=== PATIENT | female | born 1935 | race Caucasian/White ===

== ENCOUNTER 2016-06-14 18:51 | Inpatient (IN) | payer MEDICARE, OTHER ==
--- NOTE | ~2016-06-14 | HP ---
History And Physical [id number] [place]. [address] NAME: GERMÁN LOPEZ : 37 STATUS : ADM IN [facility]#: [id number] AGE: 80 ADM/REG DATE : 06/14/16 MR#: [id number] REPORT SERV DATE: 06/14/16 DICTATED BY: DATE: REPORT STATUS : Draft TRANSCRIBED BY: MODL DATE: 06/14/16 DATE OF ADMISSION: 06/14/2016 CHIEF COMPLAINT/REASON FOR ADMISSION: Complete heart block. HISTORY OF PRESENT ILLNESS: The history is taken from the daughters at the bedside. The patient was given Versed and Ativan and sedated and not able to give any history. The patient told her daughter on Tuesday night, in the middle of the night that she ached all over, and she thought she may have had a heart attack, but she actually refused to go to the emergency department and then she began feeling dizzy and having symptoms of vertigo. Earlier today when she decided that she wanted to go to the emergency department to seek care, she collapsed in the bed. Her daughter stated that she was weak. She did not pass out. She told her daughter that she felt like something was not right with her heart. She was given Versed and Ativan by EMS and emergency department respectively. The patient was given atropine 0.5 mg x1 with little heart response and in the emergency department, she came and with complete heart block with a heart rate of 28 beats per minute. She has been started on an isoproterenol drip with a good recovery of her heart rate, now ranging between 50 and 60 beats per minute. PAST MEDICAL HISTORY: 1. Coronary artery disease, status post coronary bypass [place] [address] Saunders with a SONI to the LAD and a saphenous vein graft to the OM and redo heart surgery on 01/19/2000 with probable valve replacement. Surgical report is not available. 2. Hypertension. 3. Hyperlipidemia. 4. Chronic left bundle-branch block. 5. Mitral valve regurgitation. 6. Diabetes mellitus. 7. Polymyalgia rheumatica. 8. Bursitis. SOCIAL HISTORY: The patient lives with her daughter. She does not smoke, drink, or use extracurricular drugs. ALLERGIES: NO KNOWN DRUG ALLERGIES. OUTPATIENT MEDICATIONS: Included: 1. Aspirin. 2. Vitamin D. 3. Co Q10, unknown doses by the family, but the patient was also on metformin. 4. Coreg, at unknown. 5. Isoproterenol at 15. PHYSICAL EXAMINATION: CURRENT VITAL SIGNS: Pulse is 50, low pressure is 137/35, oxygen saturations 100% on nasal History And Physical [address] [address] NAME: GERMÁN LOPEZ : 37 STATUS : ADM IN [facility]#: [id number] AGE: 80 ADM/REG DATE : 06/14/16 MR#: [id number] REPORT SERV DATE: 06/14/16 DICTATED BY: DATE: REPORT STATUS : Draft TRANSCRIBED BY: MODL DATE: 06/14/16 cannula. When the patient presented to the emergency department, her blood pressure was 78/24, temperature 97.4, pulse 26, respirations 13, oxygen saturations 98%. GENERAL: Mrs. Lopez is stuporous and unable to answer any questions. NECK: I could not appreciate jugular venous distention. HEART: Bradycardic. Soft S1, S2. There is a 3/6 systolic murmur that is appreciated over the precordium. It is best at the apex. LUNGS: Clear to auscultation. ABDOMEN: Mildly tender to palpation. EXTREMITIES: There is no evidence of lower extremity edema. Complete neurologic status could not be obtained due to the patient's sedation. MUSCULOSKELETAL: No clubbing or cyanosis of the digits. DATA: Laboratory results in the emergency department noted a hemoglobin of 11.4, hematocrit of 33.1, a platelet count of 161, INR 1. Sodium 142, potassium 4.7, BUN 42, creatinine 1.47, calcium 8.9, albumin 3.2. BNP is 704. Troponin is 0.03. TSH is 1.6. AST 31, ALT 34, alkaline phosphatase 90. A chest x-ray performed in the emergency department demonstrated cardiomegaly and mild pulmonary edema bilaterally. Evidence of prior coronary artery bypass grafting is noted. An EKG performed in the emergency department demonstrated sinus bradycardia at approximately 60 beats per minute with a ventricular escape at 28 beats per minute. Right bundle-branch morphology noted. Laboratory results noted a hemoglobin of 11.4, hematocrit of 33.1, white blood cell count 7.4, platelet count 161, INR is 1. Sodium 142, potassium 4.7, BUN 42, creatinine 1.47, glucose is 300. BNP is 702. Troponin 0.03. TSH is 1.6. IMPRESSION/REPORT/PLAN: 1. Complete heart block. 2. History of coronary artery disease, status post coronary bypass grafting. 3. Hypertension. 4. Hyperlipidemia. 5. Diabetes mellitus, uncontrolled. 6. Mild renal insufficiency. 7. Likely acute heart failure secondary to complete heart block as above. RECOMMENDATIONS: 1. I have recommended previously to the emergency department to start isoproterenol drip and one titrated up to keep the patient's heart rate greater than 60 beats per minute. 2. Would rule out acute myocardial infarction. 3. Check free T4, magnesium, lipid panel, hemoglobin A1c, and lactate level. 4. Would recommend echocardiogram to evaluate her left ventricular systolic function. 5. I have recommended to the family that we strongly consider pacemaker placement in the morning. We will arrange for pre-pacemaker orders to the chart consent for pacemaker placement. 6. I have briefly discussed this with Interventional Cardiology in case the patient needs a temporary wire overnight. 7. Additional recommendations pending clinical course. History And Physical [address] [address] NAME: GERMÁN LOPEZ : 37 STATUS : ADM IN [facility]#: [id number] AGE: 80 ADM/REG DATE : 06/14/16 MR#: [id number] REPORT SERV DATE: 06/14/16 DICTATED BY: DATE: REPORT STATUS : Draft TRANSCRIBED BY: ELO DATE: 06/14/16 Massiel/ELO Shy Carrasco M.D. / [id number] CC: Bentley Guerra M.D.
--- NOTE | ~2016-06-14 | CN ---
Consultation Report [facility] [address] [place]. [address] NAME: GERMÁN LOPEZ : 37 STATUS : ADM IN PAT#: [id number] AGE: 80 ADM/REG DATE : 06/14/16 MR#: [id number] REPORT SERV DATE: 06/15/16 DICTATED BY: SALLY ROGERS DATE: 06/15/16 REPORT STATUS : Draft TRANSCRIBED BY: MODL DATE: 06/15/16 CONSULT DATE OF CONSULTATION: 06/15/2016 INDICATION: Complete heart block, bradycardia, presyncope. HISTORY: The patient is a 80-year-old white female who had been followed by Dr. Carrasco for a number of years but had not maintained followup. She has a history of myocardial infarction on 05/13/1998 with two-vessel coronary bypass grafting on 05/17/[address] Saunders with SONI to LAD and SVG to OM and redo bypass grafting on 01/19/2000. Her EF on 06/13/2014 showed normal LV function. ECG shows chronic left bundle branch block pattern. Limited echo today on pressor shows an EF of 65%. She has mild diastolic dysfunction and mild mitral regurgitation. She has a history of type 2 diabetes mellitus and polymyalgia rheumatica, presents with blood sugars of nearly 800. CURRENT HOME MEDICATIONS: Amlodipine 10 daily, aspirin 81 a day, atorvastatin 40 a day, carvedilol 3.125 b.i.d., vitamin D 400 units per day, Coenzyme Q10 100 per day, ibuprofen p.r.n., insulin aspartate as directed, insulin detemir as directed, lisinopril 20 a day, meclizine 25 q.6, metformin 1000 with breakfast and 500 with supper, multivitamins daily, Tamiflu 75 per day. ALLERGIES OR INTOLERANCES: None known. SOCIAL HISTORY: Her son is a nurse in the critical care unit here, negative for alcohol or tobacco use. FAMILY HISTORY: Unknown at this time. PAST MEDICAL HISTORY: See above. REVIEW OF SYSTEMS: See above. PHYSICAL EXAMINATION: GENERAL: Elderly white female, in moderate distress upon arrival to the ER. VITAL SIGNS: Systolic pressure 70, pulse 30-40. HEENT: She is normocephalic. There is no pallor. Sclerae white. JVD is not elevated. CHEST: No crackles. CARDIAC: There is a 2/6 systolic ejection murmur and 1/6 mitral regurgitation murmur. ABDOMEN: Soft. EXTREMITIES: Without edema. NEUROLOGIC: Not assessable as she has had anxiolytics. Consultation Report [address] [place]. [address] NAME: GERMÁN LOPEZ : 37 STATUS : ADM IN [facility]#: [id number] AGE: 80 ADM/REG DATE : 06/14/16 MR#: [id number] REPORT SERV DATE: 06/15/16 DICTATED BY: SALLY ROGERS DATE: 06/15/16 REPORT STATUS : Draft TRANSCRIBED BY: MODAdan DATE: 06/15/16 LABORATORY DATA: BUN 42, creatinine 1.47. BNP 702. TSH 1.68. White count 7.4, hemoglobin 9.4. Baseline ECG shows left bundle branch block pattern. Initial ECG here shows a right bundle branch block pattern with complete AV block. IMPRESSION: Plan dual chamber pacemaker. Risks and benefits are known to the family and the patient. EDUARDO/ELO Sally Rogers M.D. / [id number] CC: Jorge Mcdonald M.D. [facility]
--- NOTE | ~2016-06-14 | DS ---
Discharge Summary [facility] [address] [place]. [address] NAME: GERMÁN LOPEZ : 37 STATUS : DIS IN PAT#: [id number] AGE: 80 ADM/REG DATE : 06/14/16 MR#: [id number] REPORT SERV DATE: 07/15/16 DICTATED BY: DATE: REPORT STATUS : Draft TRANSCRIBED BY: MODAdan DATE: 07/14/16 Data Collection from hospitalization DISCHARGE DIAGNOSES: 1. Complete heart block, status post pacemaker placement. 2. Acute systolic heart failure. 3. Coronary artery disease, status post coronary artery bypass grafting. 4. Diabetes mellitus. 5. Hypertension. 6. Hyperlipidemia. 7. Polymyalgia rheumatica. 8. Bursitis. CONSULTATIONS: 1. Harshad Rogers M.D. 2. Mic Ferrari M.D. PROCEDURES: Pacemaker implantation, 06/15/2016. DISCHARGE MEDICATIONS: Norvasc 10 mg daily; aspirin 81 mg daily; Lipitor 40 mg at bedtime; Coreg 6.25 mg twice a day; vitamin D 400 units daily; CoQ10 100 mg daily; Advil PM one capsule at bedtime as needed; NovoLog FlexPen 5-10 units subcutaneously before meals; Levemir FlexPen 20 units subcutaneously at bedtime; Prinivil 20 mg daily; Antivert 25 mg every six hours as needed; Glucophage 1000 mg with breakfast and 500 mg with supper; Centrum tablets one tablet daily; Aldactazide 25 mg daily; Ultram 50-100 mg every four hours as needed. CONDITION ON DISCHARGE: Stable. DISPOSITION: The patient was discharged home on a low-cholesterol, low-sodium, 1800-calorie cardiac/diabetic diet with activities as instructed. She would follow up with Dr. Shy Carrasco on 07/12/2016 and 07/19/2016. She will follow up with Dr. Bentley Guerra 1 week following discharge. HOSPITAL COURSE: This is a 80-year-old female who presented with a chief complaint of complete heart block. The patient told her daughter on Tuesday night prior to admission in the middle of the night that she ached all over and she thought she may have had a heart attack. She actually refused to come to the emergency room. She began to feel dizzy and had symptoms of vertigo, earlier on the day of this admission, when she decided that she wanted to go to the emergency department to seek care. She collapsed in the bed. Her daughter said that she was weak. She did not pass out. She told her daughter that she felt like something was not right with her heart. She was given Versed and Ativan by EMS and emergency department respectively. She was given a dose of atropine with little heart response and in the emergency department she came and was found to have a complete heart block with heart rate of 28 beats per minute. She was started on isoproterenol drip with good recovery of her heart rate which now ranged between 50 and 60 beats per minute. She was admitted to the hospital at this time for further evaluation and treatment. Discharge Summary [facility] [address] [place]. [address] NAME: GERMÁN LOPEZ : 37 STATUS : DIS IN PAT#: [id number] AGE: 80 ADM/REG DATE : 06/14/16 MR#: [id number] REPORT SERV DATE: 07/15/16 DICTATED BY: DATE: REPORT STATUS : Draft TRANSCRIBED BY: MODL DATE: 07/14/16 Upon admission, isoproterenol drip was started and would be titrated to keep the patient's heart rate greater than 60 beats per minute. We were going to rule out acute myocardial infarction. We would check free T4, magnesium, lipid panel, hemoglobin A1c, and lactate level. Echocardiogram was going to be performed to evaluate left ventricular systolic function. It was recommended to the patient's family that we would strongly consider pacemaker placement. The following day, limited echocardiogram showed ejection fraction of 65%. She was on pressor. She had mild diastolic dysfunction and mild mitral regurgitation. She does have a history of type 2 diabetes mellitus and polymyalgia rheumatica. Her blood sugar was nearly 800. Creatinine level was 1.47. It was felt that the patient would need to undergo dual-chamber pacemaker placement. She agreed to proceed. She was taken to the electrophysiology laboratory where she underwent the above-mentioned procedure by Dr. Harshad Rogers. She tolerated this well. There were no complications. Following this, she was seen by Dr. Mic Ferrari regarding respiratory failure, on mechanical ventilator. The patient has no history of underlying intrinsic lung disease. We would continue ventilatory support though change to CMV with tidal volume only at 500 mL. Blood gas was adequate. We would attempt to wean. The following day, she was clinically stable. The patient has symptoms of obstructive sleep apnea and warrants an outpatient sleep evaluation for cardiac disease. Influenza screen was ordered. She will be treated with Tamiflu regardless with her known exposure. Blood cultures would be obtained as well as tracheal aspirate and Gram stain and culture as well as urine and urine culture, if indicated. We would not provide empiric antibiotics at this time. Prevnar 13 would be given at the time of discharge. IV insulin was going to be continued. Levemir was continued. We were going to check a cortisol level. Additional IV magnesium would be provided. The patient was felt to have acute kidney injury likely secondary to under perfusion which was also the cause of the elevated lactate. Ionized calcium was going to be obtained. IV fluids were continued. Echocardiogram would be obtained the following day. IV Cody-Synephrine would be provided to maintain mean arterial pressure greater than or equal to 70. Norvasc was going to be held. Pneumatic compression stockings were going to be placed. Protonix would be given for GI prophylaxis. Glucerna was going to be provided as well. Precedex would be given for sedation, and a multivitamin would be given daily. A PICC line was inserted. The next day, low-dose Coreg and lisinopril were given. Spironolactone was going to be added as well. Creatinine level had decreased. Over the next couple of days, she remained stable. She did complain of pain in the left shoulder. She had no chest pain or shortness of breath. Low-dose CARIE inhibitor was added. She was going to be transferred to telemetry. Aspirin, atorvastatin, spironolactone, and Coreg were continued. On 06/18/2016, she had no issues during the night. Creatinine level continued to decrease and was now 0.94. She still complained of intermittent bilateral shoulder and back pain. It was not worse when she got up to sit in a chair. Stool was going to be checked for blood. Roberts catheter was going to be removed. We encouraged her to ambulate. Aldactone was added. The next day, discharge planning was performed. She had some soreness at the pacemaker site. Norvasc was continued. Coreg was increased. Lisinopril was continued. She was evaluated by Physical Therapy. Discharge planning was performed. On 06/20/2016, she had no chest pain. She still has soreness at the pacer site. Discharge instructions were given. Due to her improved and stable condition, she was discharged home with the above-stated instructions. Discharge Summary [id number] [place]. [address] NAME: GERMÁN LOPEZ : 37 STATUS : DIS IN PAT#: [id number] AGE: 80 ADM/REG DATE : 06/14/16 MR#: [id number] REPORT SERV DATE: 07/15/16 DICTATED BY: DATE: REPORT STATUS : Draft TRANSCRIBED BY: ELO DATE: 07/14/16 Information collected by: Carmella Moore I submit the above information as my discharge summary. BASHIR/ELO Shy Carrasco M.D. / [id number] CC: Jorge Mcdonald M.D. David Wendt, M.D.
--- NOTE | ~2016-06-14 | CN ---
Consultation Report [facility] [address] [place]. [address] NAME: GERMÁN LOPEZ : 37 STATUS : ADM IN [facility]#: [id number] AGE: 80 ADM/REG DATE : 06/14/16 MR#: [id number] REPORT SERV DATE: 06/15/16 DICTATED BY: MIGUEL FERRARI IV DATE: 06/15/16 REPORT STATUS : Draft TRANSCRIBED BY: MODL DATE: 06/15/16 CRITICAL CARE CONSULTATION DATE OF CONSULTATION: 06/15/2016 REASON FOR REQUEST: Respiratory failure on mechanical ventilator. CRITICAL CARE TIME SEEN: 12:35 to 13:30 for 55 minutes of critical care time. REASON FOR ADMISSION: Postprocedure respiratory failure on mechanical ventilator with hypotension requiring vasopressor agents. HISTORY OF PRESENT ILLNESS: History is obtained from the family and records. Ms. Lopez is a 80-year-old female with a history of hypertension; elevated cholesterol; coronary artery disease; mitral valvular disease, status post either repair or replacement; polymyalgia rheumatica; chronic left bundle-branch block, who was admitted with complete heart block, now with a pacemaker on the ventilator postprocedure. The patient became ill on Tuesday. They had several family members with symptoms consistent with influenza with a step-granddaughter with reported screen positive influenza B. She had diffuse body aches, chills, and weakness. That afternoon, she developed some back pain, which she related to her heart and then weakness and malaise. The symptoms seemed to improve in the afternoon on Tuesday, though worsening again on Tuesday. Today, she took two of the family members Tamiflu. The family checked her pulse on Tuesday and found it to be in the 20s for which she was brought to the emergency room. She was found to be in third-degree heart block and underwent pacemaker placement today. She had required Isuprel to maintain an adequate pulse at relatively high doses. Postprocedure, she was intubated for airway protection during the procedure, and postprocedure, it was felt that she was too unstable for attempts at extubation for which she is moved to the ICU. There is no history of intrinsic lung disease. She has an intermittent dry cough that is no different than its baseline. There was no hemoptysis. She is not on bronchodilator medication nor is she on supplemental oxygen at home. The patient reportedly snores. The patient is unaware of apneic episodes. She allows herself seven to eight hours of sleep most evenings. They are unsure about the quality of sleep, however, she is sluggish and has sedentary hypersomnolence. PULMONARY HISTORY: Remarkable for no history of childhood asthma or known adult obstructive lung disease. She did have pneumonia in past. She is a lifelong nonsmoker with no significant secondary smoke exposure. She has not been receiving the seasonal influenza or a vaccinations or the pneumococcal vaccinations. PAST MEDICAL HISTORY: 1. Hypertension. 2. Elevated cholesterol. Consultation Report [place] [id number] [facility] [place]. [address] NAME: GERMÁN LOPEZ : 37 STATUS : ADM IN [facility]#: [id number] AGE: 80 ADM/REG DATE : 06/14/16 MR#: [id number] REPORT SERV DATE: 06/15/16 DICTATED BY: MIGUEL FERRRAI IV DATE: 06/15/16 REPORT STATUS : Draft TRANSCRIBED BY: ELO DATE: 06/15/16 3. Coronary artery disease. 4. Mitral valve disease. 5. Polymyalgia rheumatica. 6. Left bundle-branch block. 7. Complete heart block. 8. Borderline chronic kidney disease. SURGERIES: The patient had, 1. Coronary artery bypass grafting. 2. Mitral valvular repair or replacement. 3. Tonsillectomy and adenoidectomy. 4. Cholecystectomy. ALLERGIES: NO KNOWN DRUG ALLERGIES. CURRENT MEDICATIONS: The patient is on aspirin 81 mg daily, Bactroban each nostril, CoQ10 100 mg daily, Levemir 20 units daily, Lipitor 40 mg at bedtime, Norvasc 5 mg daily. She is on Cody-Synephrine currently at 20 mcg per minute, and insulin drip at 3 units/hour. SOCIAL HISTORY: Remarkable for no tobacco, alcohol, or illicit drug use. She is , has five children. FAMILY HISTORY: Remarkable for sister with diabetes and coronary artery disease. Mother with diabetes mellitus. Father and brother with coronary artery disease. REVIEW OF SYSTEMS: 14 systems reviewed. Pertinent positives as noted above. PHYSICAL EXAMINATION: GENERAL: This is an obese, elderly female, sedated, though able to open her eyes and nod to questions. VITAL SIGNS: Temperature is 98.2, pulse is 70, respiratory rate is 20, saturations are 98% on 50% FiO2, blood pressure is 118/52. HEENT: Patient is normocephalic, atraumatic. Extraocular movements are intact. Pupils react to light. Sclerae and conjunctivae normal. She has no drainage from either nasal passage. She has a Mallampati IV airway with relatively good dentition. She has an orogastric and orotracheal tube in position. NECK: Without any palpable lymphadenopathy or thyromegaly. CHEST: The patient has some minimal bibasilar crackles. No wheezes or rhonchi are noted. She has a sternotomy scar. She has a pacemaker in her left anterior chest with dressings. CARDIOVASCULAR: Jugular venous pulsations are difficult to elicit. She has 1+ carotid upstrokes. No obvious bruit. She has a distant regular S1, S2 with no clear murmur or S3. Peripheral pulses are diminished. ABDOMEN: Obese, soft. There are hypoactive bowel sounds. There is no palpable hepatosplenomegaly or mass. Surgical scars are noted. Consultation Report [address] [place]. [address] NAME: GERMÁN LOPEZ : 37 STATUS : ADM IN [facility]#: [id number] AGE: 80 ADM/REG DATE : 06/14/16 MR#: [id number] REPORT SERV DATE: 06/15/16 DICTATED BY: MIGUEL FERRARI IV DATE: 06/15/16 REPORT STATUS : Draft TRANSCRIBED BY: ELO DATE: 06/15/16 EXTREMITIES: Demonstrate no cyanosis, clubbing, edema, or palpable cords. NEUROLOGIC: The patient is sedated though does follow some simple commands, does seem to move all extremities. LABORATORY DATA: Chest x-ray is very rotated film. Tubes and lines are in good position. There is no pneumothorax. There are some pulmonary vascular congestive changes, though not severe. No effusions are noted. A KUB demonstrates the OG to be in good position. CBC: Hemoglobin 11, hematocrit 31.5, platelet count was a 174,000, and white blood cell count 13,000. Chemistry: Sodium 134, potassium 3.8, chloride 102, bicarbonate 17, BUN 43, creatinine is 2.19, glucose is 612, magnesium is 1.4. Troponin is 0.67. BNP is 770. Blood gas; pH 7.36, pCO2 30, PO2 of 314. ASSESSMENT AND PLAN: 1. Respiratory. The patient has no history of underlying intrinsic lung disease. We will continue ventilatory support, though change to CMV with tidal volume only at 500 mL. Blood gas is adequate. We will attempt to wean tomorrow if she is clinically stable. The patient has symptoms of obstructive sleep apnea and warrants an outpatient sleep evaluation for cardiac disease. 2. Infectious Disease. The influenza screen has been ordered. We will treat with Tamiflu regardless with unknown exposure. We will check blood cultures, tracheal aspirate, Gram stain and culture, as well as urine and urine culture if indicated. I would not provide empiric antibiotics at this time. Prevnar-13 at the time of discharge. 3. Endocrinologic. IV insulin will be continued with the level changed to maintain blood sugars less than 160. Levemir will be given 14 units b.i.d. Cortisol level will be obtained. 4. Renal. We will give additional magnesium 3 g. Check tomorrow with the patient who has acute kidney injury likely secondary to under perfusion, which is also the cause for the elevated lactate. This will be repeated tomorrow. Ionized calcium will be obtained. 5. Cardiovascular. Total IV fluids at 50 mL an hour with drips. Echocardiogram will be obtained tomorrow. Pacemaker has been placed. IV Cody-Synephrine to maintain mean arterial pressure greater than or equal to 70. Would hold all Norvasc. 6. Hematologic. Pneumatic compression stockings serially. 7. Gastrointestinal. Protonix will be given for gastrointestinal prophylaxis 40 mg daily, Glucerna 1.2 at 20 mL an hour without escalation. 8. Neurologic. Precedex for sedation. Multivitamin will be given daily. Thank you for consulting us. We will follow the patient with you. NM/MODL Miguel Ferrari IV, M.D. Consultation Report [facility] [address] [place] [address] [place]. [address] NAME: GERMÁN LOPEZ : 37 STATUS : ADM IN [facility]#: [id number] AGE: 80 ADM/REG DATE : 06/14/16 MR#: [id number] REPORT SERV DATE: 06/15/16 DICTATED BY: MIGUEL FERRARI IV DATE: 06/15/16 REPORT STATUS : Draft TRANSCRIBED BY: ELO DATE: 06/15/16 / [id number] CC: Jorge Mcdonald M.D.
[2016-06-14 17:57] LABS: BASOPHILS 0.1 %; BASOPHILS ABSOLUTE 0.01 10/3/uL (0.0-0.16); EOSINOPHILS 1.8 %; EOSINOPHILS ABSOLUTE 0.13 10/3/uL (0.0-0.53); ER CBC TAT 0 Hrs 13 Mins; HEMATOCRIT 33.1 % (36.0-48.0); HEMOGLOBIN 11.4 g/dL (12.0-16.0); IMMATURE GRANULOCYTES 0.1 %; MEAN CORPUS HGB CONC 34.4 g/dL (32.0-36.0); MEAN CORPUSCULAR HEMOGLOB 32.3 pg (26.0-34.0); MEAN PLATELET VOLUME 10.7 fL (9.2-13.0); MONOCYTES 5.7 %; MONOCYTES ABSOLUTE 0.42 10/3/uL (0.21-1.20); NEUTROPHILS 69.3 %; NEUTROPHILS ABSOLUTE 5.12 10/3/uL (2.02-8.40); PLATELET COUNT 161 10/3/uL (150-400); RBC DISTRIBUTION WIDTH 13.2 % (12.0-16.0); RED CELL COUNT 3.53 10/6/uL (4.0-5.6); WHITE BLOOD CELLS 7.4 10/3/uL (4.5-10.5)
[2016-06-14 18:02] LABS: IMMATURE GRANULOCYTES ABSOLUTE 0.01 10/3/uL (0.0-0.11); MANUAL DIFF NO %; MEAN CORPUSCULAR VOLUME 93.8 fL (80-100)
[2016-06-14 18:06] LABS: PROTIME (NOT ORD) 13.4 SEC (12.0-14.5)
[2016-06-14 18:20] LABS: ALBUMIN 3.2 G/DL (3.5-5.0); ALKALINE PHOSPHATASE 90 U/L (45-117); CALCIUM, SERUM 8.9 MG/DL (8.5-10.4); CHLORIDE, SERUM 109 MMOL/L (96-112); GLOBULIN 3.3 G/DL (2.5-4.1); POTASSIUM, SERUM 4.7 MMOL/L (3.5-5.3); SGOT(AST) 31 U/L (5-40); SGPT(ALT) 34 U/L (5-65); SODIUM, SERUM 142 MMOL/L (135-148); TOTAL BILIRUBIN 0.3 MG/DL (0-1.2); TOTAL PROTEIN 6.5 G/DL (6.0-8.5); TROPONIN I 0.03 NG/ML (<0.05)
[2016-06-14 18:21] LABS: BUN (BLOOD UREA NITROGEN) 42 MG/DL (6-23); CO2 (CARBON DIOXIDE) 21 MMOL/L (24-34); CREATININE 1.47 MG/DL (0.55-1.02); GFR AFRICAN AMERICAN 39 ML/MIN (>=60); GFR NON AFRICAN AMERICAN 34 ML/MIN (>=60); GLUCOSE, SERUM 300 MG/DL (60-99)
[2016-06-14 18:33] LABS: BAND NEUTROPHILS 2 %; EOSINOPHILS 2 %; EOSINOPHILS ABSOLUTE (CALC) 0.15 10/3/uL (0.0-0.53); ER DIFF TAT 0 Hrs 49 Mins; LYMPHOCYTES 18 %; LYMPHOCYTES ABSOLUTE (CALC) 1.33 10/3/uL (0.67-4.30); MONOCYTES 5 %; MONOCYTES ABSOLUTE (CALC) 0.37 10/3/uL (0.21-1.20); NEUTROPHILS ABSOLUTE (CALC) 5.55 10/3/uL (2.02-8.40); PLATELET ESTIMATE ADQ (ADEQUATE); SEGMENTED NEUTROPHIL (0) 73 %; TEARDROP SHAPED RBCS OCC (0-2/OIF); TOTAL NUCLEATED CELLS 100
[~2016-06-14 18:51] MED LIST: *UNABLE3; AMARYL4 PO; ASAB PO; ATEN25 PO; CENTRUM PO; CO Q-10100 MG PO; COREG6 PO; CYANO1000T PO; CYMBALTA30 PO; DSS PO; FLEX PO; GLUCPH PO; JANUMET1 TAB PO; LANTUSCART SC; LIPITOR40 PO; LORT7 PO; NORV10 PO; NOVOPEN SQ; PRIN20 PO; PROTONIX PO; PROVHFA INH; VITAMIN D400 UNI1 PO; ZOFRAN ODT4 MG PO
[2016-06-14] MEDS ORDERED: LEVEMFLXPN SQ (18:52)
[2016-06-14] MEDS ORDERED: ADVIL PM1 CAP PO (18:52)
[2016-06-14] MEDS ORDERED: MCZ25 PO (18:53)
[2016-06-14] MEDS ORDERED: TAMIFLU PO (18:54)
[2016-06-14] MEDS ORDERED: AMOX250 PO (18:55)
[2016-06-14 21:07] LABS: CHOL/HDL RATIO(NOT ORDER) 3.4 (0-5); CHOLESTEROL 140 MG/DL (< 200); CPK 34 U/L (0-200); FREE T4 1.33 NG/DL (0.76-1.46); HDL CHOLESTEROL 41 MG/DL (> 49); NON-HDL CHOLESTEROL 99 MG/DL (< 160)
[2016-06-14 21:08] LABS: CK-MB < 0.5 NG/ML; LDL CHOLESTEROL 66 MG/DL (< 130); TRIGLYCERIDE 168 MG/DL (< 150)
[2016-06-14 23:21] LABS: CPK 31 U/L (0-200)
[2016-06-14 23:24] LABS: CK-MB 1.6 NG/ML
[2016-06-14 23:25] LABS: TROPONIN I 0.43 NG/ML (<0.05)
[2016-06-15 04:18] LABS: GLUCOSE, SERUM 612 MG/DL (60-99)
[2016-06-15 04:20] LABS: HEMATOCRIT 31.5 % (36.0-48.0); MEAN CORPUS HGB CONC 34.9 g/dL (32.0-36.0); MEAN CORPUSCULAR HEMOGLOB 32.4 pg (26.0-34.0); MEAN CORPUSCULAR VOLUME 92.6 fL (80-100); MEAN PLATELET VOLUME 10.7 fL (9.2-13.0); PLATELET COUNT 174 10/3/uL (150-400); RBC DISTRIBUTION WIDTH 12.5 % (12.0-16.0)
[2016-06-15 04:21] LABS: BUN (BLOOD UREA NITROGEN) 43 MG/DL (6-23); CHLORIDE, SERUM 102 MMOL/L (96-112); CO2 (CARBON DIOXIDE) 17 MMOL/L (24-34); CPK 45 U/L (0-200); MANUAL DIFF YES %; POTASSIUM, SERUM 3.8 MMOL/L (3.5-5.3)
[2016-06-15 04:26] LABS: CALCIUM, SERUM 7.9 MG/DL (8.5-10.4); CREATININE 2.19 MG/DL (0.55-1.02); GFR AFRICAN AMERICAN 24 ML/MIN (>=60); GFR NON AFRICAN AMERICAN 21 ML/MIN (>=60); SODIUM, SERUM 134 MMOL/L (135-148); TROPONIN I 0.67 NG/ML (<0.05)
[2016-06-15 05:18] LABS: BAND NEUTROPHILS 4 %; LYMPHOCYTES 9 %; LYMPHOCYTES ABSOLUTE (CALC) 1.17 10/3/uL (0.67-4.30); MONOCYTES 2 %; MONOCYTES ABSOLUTE (CALC) 0.26 10/3/uL (0.21-1.20); NEUTROPHILS ABSOLUTE (CALC) 11.57 10/3/uL (2.02-8.40); PLATELET ESTIMATE ADQ (ADEQUATE); RBC MORPHOLOGY NORM (NORMAL); SEGMENTED NEUTROPHIL (0) 85 %; TOTAL NUCLEATED CELLS 100
[2016-06-15 11:14] LABS: CREATININE 1.4 MG/DL (0.55-1.02)
[2016-06-15 12:43] LABS: BE (BASE EXCESS) -7.7 MEQ/L (0 +/- 2.5); CARBOXYHEMOGLOBIN 0.2 % (0-3); HCO3 (ACTUAL BICARBONATE) 16.6 MEQ/L (23-27); HEMOBLOGIN CONTENT 11.8 G/DL (12-16); INSTRUMENT SERIAL # 35151; METHEMOGLOBIN 0.7 % (0-3); MODE SIMV; O2 CONTENT 17.1 VOL% (18-24); PCO2 (CO2 TENSION) 30 MMHG (35-45); PO2 (O2 TENSION) 314 MMHG (79-93); SAMPLE Arterial; TIDAL VOLUME 500 ML; pH 7.36 (7.37-7.43)
[2016-06-15 13:38] LABS: A/G RATIO 0.9 (0.7-1.9); ALBUMIN 2.8 G/DL (3.5-5.0); ALKALINE PHOSPHATASE 82 U/L (45-117); BUN (BLOOD UREA NITROGEN) 34 MG/DL (6-23); CALCIUM, SERUM 7.6 MG/DL (8.5-10.4); CHLORIDE, SERUM 108 MMOL/L (96-112); CO2 (CARBON DIOXIDE) 19 MMOL/L (24-34); CREATININE 1.49 MG/DL (0.55-1.02); GFR AFRICAN AMERICAN 38 ML/MIN (>=60); GFR NON AFRICAN AMERICAN 33 ML/MIN (>=60); GLOBULIN 3.1 G/DL (2.5-4.1); GLUCOSE, SERUM 126 MG/DL (60-99); POTASSIUM, SERUM 4.3 MMOL/L (3.5-5.3); SGOT(AST) 68 U/L (5-40); SGPT(ALT) 54 U/L (5-65); SODIUM, SERUM 138 MMOL/L (135-148); TOTAL BILIRUBIN 0.6 MG/DL (0-1.2); TOTAL PROTEIN 5.9 G/DL (6.0-8.5)
[2016-06-15 14:51] LABS: ASCORBIC ACID (UR NOT ORDER) NEG (NEG); BILIRUBIN, URINE NEGATIVE (NEG); KETONE, URINE NEGATIVE (NEG); LEUKOCYTE ESTERASE(NOT OR NEG (NEG); WBC (NOT ORDERED) (RFLEX) 2 (0-5)
[2016-06-15 14:51] LABS: PHOSPHORUS, SERUM 2.1 MG/DL (2.5-4.5)
[2016-06-15 16:49] LABS: INFLUENZA A SCREEN NEGATIVE (NEGATIVE); INFLUENZA B SCREEN NEGATIVE (NEGATIVE)
[2016-06-16 04:16] LABS: BASOPHILS 0.1 %; BASOPHILS ABSOLUTE 0.01 10/3/uL (0.0-0.16); EOSINOPHILS 0.1 %; EOSINOPHILS ABSOLUTE 0.01 10/3/uL (0.0-0.53); HEMATOCRIT 29.7 % (36.0-48.0); HEMOGLOBIN 10.6 g/dL (12.0-16.0); IMMATURE GRANULOCYTES 0.3 %; IMMATURE GRANULOCYTES ABSOLUTE 0.03 10/3/uL (0.0-0.11); LYMPHOCYTES ABSOLUTE 0.91 10/3/uL (0.67-4.30); MANUAL DIFF NO %; MEAN CORPUS HGB CONC 35.7 g/dL (32.0-36.0); MEAN CORPUSCULAR HEMOGLOB 32.8 pg (26.0-34.0); MEAN PLATELET VOLUME 10.4 fL (9.2-13.0); MONOCYTES 8.1 %; MONOCYTES ABSOLUTE 0.74 10/3/uL (0.21-1.20); NEUTROPHILS 81.4 %; PLATELET COUNT 126 10/3/uL (150-400); RBC DISTRIBUTION WIDTH 12.9 % (12.0-16.0); RED CELL COUNT 3.23 10/6/uL (4.0-5.6); WHITE BLOOD CELLS 9.1 10/3/uL (4.5-10.5)
[2016-06-16 04:39] LABS: BUN (BLOOD UREA NITROGEN) 33 MG/DL (6-23); CALCIUM, SERUM 7.4 MG/DL (8.5-10.4); CHLORIDE, SERUM 111 MMOL/L (96-112); CO2 (CARBON DIOXIDE) 20 MMOL/L (24-34); CREATININE 1.32 MG/DL (0.55-1.02); GFR AFRICAN AMERICAN 44 ML/MIN (>=60); GFR NON AFRICAN AMERICAN 38 ML/MIN (>=60); POTASSIUM, SERUM 4.3 MMOL/L (3.5-5.3); SODIUM, SERUM 140 MMOL/L (135-148)
[2016-06-16 04:49] LABS: GLUCOSE, SERUM 99 MG/DL (60-99); PHOSPHORUS, SERUM 3.3 MG/DL (2.5-4.5); TROPONIN I 1.06 NG/ML (<0.05)
[2016-06-17 04:10] LABS: BASOPHILS 0.2 %; BASOPHILS ABSOLUTE 0.02 10/3/uL (0.0-0.16); EOSINOPHILS ABSOLUTE 0.11 10/3/uL (0.0-0.53); HEMATOCRIT 28.7 % (36.0-48.0); HEMOGLOBIN 9.8 g/dL (12.0-16.0); IMMATURE GRANULOCYTES 0.4 %; IMMATURE GRANULOCYTES ABSOLUTE 0.04 10/3/uL (0.0-0.11); LYMPHOCYTES 10.4 %; LYMPHOCYTES ABSOLUTE 1.11 10/3/uL (0.67-4.30); MEAN CORPUS HGB CONC 34.1 g/dL (32.0-36.0); MEAN CORPUSCULAR HEMOGLOB 32.2 pg (26.0-34.0); MEAN CORPUSCULAR VOLUME 94.4 fL (80-100); MONOCYTES 7.5 %; NEUTROPHILS 80.5 %; NEUTROPHILS ABSOLUTE 8.55 10/3/uL (2.02-8.40); PLATELET COUNT 161 10/3/uL (150-400); RBC DISTRIBUTION WIDTH 13.2 % (12.0-16.0); RED CELL COUNT 3.04 10/6/uL (4.0-5.6); WHITE BLOOD CELLS 10.6 10/3/uL (4.5-10.5)
[2016-06-17 04:14] LABS: MANUAL DIFF NO %
[2016-06-17 04:22] LABS: ALBUMIN 2.5 G/DL (3.5-5.0); CALCIUM, SERUM 7.8 MG/DL (8.5-10.4); CHLORIDE, SERUM 117 MMOL/L (96-112); CO2 (CARBON DIOXIDE) 22 MMOL/L (24-34); CREATININE 1.13 MG/DL (0.55-1.02); GFR AFRICAN AMERICAN 54 ML/MIN (>=60); GFR NON AFRICAN AMERICAN 46 ML/MIN (>=60); PHOSPHORUS, SERUM 3.3 MG/DL (2.5-4.5); POTASSIUM, SERUM 3.9 MMOL/L (3.5-5.3)
[2016-06-17 04:25] LABS: BUN (BLOOD UREA NITROGEN) 25 MG/DL (6-23); GLUCOSE, SERUM 54 MG/DL (60-99); SODIUM, SERUM 147 MMOL/L (135-148)
[2016-06-18 04:47] LABS: BASOPHILS 0.2 %; BASOPHILS ABSOLUTE 0.01 10/3/uL (0.0-0.16); EOSINOPHILS 1.8 %; EOSINOPHILS ABSOLUTE 0.12 10/3/uL (0.0-0.53); HEMOGLOBIN 8.7 g/dL (12.0-16.0); IMMATURE GRANULOCYTES 0.2 %; IMMATURE GRANULOCYTES ABSOLUTE 0.01 10/3/uL (0.0-0.11); LYMPHOCYTES 19.6 %; LYMPHOCYTES ABSOLUTE 1.29 10/3/uL (0.67-4.30); MEAN CORPUS HGB CONC 34.1 g/dL (32.0-36.0); MEAN CORPUSCULAR HEMOGLOB 32.6 pg (26.0-34.0); MEAN CORPUSCULAR VOLUME 95.5 fL (80-100); MONOCYTES 8.7 %; MONOCYTES ABSOLUTE 0.57 10/3/uL (0.21-1.20); NEUTROPHILS 69.5 %; NEUTROPHILS ABSOLUTE 4.58 10/3/uL (2.02-8.40); PLATELET COUNT 125 10/3/uL (150-400); RBC DISTRIBUTION WIDTH 13.6 % (12.0-16.0); RED CELL COUNT 2.67 10/6/uL (4.0-5.6); WHITE BLOOD CELLS 6.6 10/3/uL (4.5-10.5)
[2016-06-18 04:53] LABS: HEMATOCRIT 25.5 % (36.0-48.0); MANUAL DIFF NO %
[2016-06-18 05:04] LABS: CALCIUM, SERUM 7.6 MG/DL (8.5-10.4); CHLORIDE, SERUM 115 MMOL/L (96-112); CO2 (CARBON DIOXIDE) 21 MMOL/L (24-34); CREATININE 0.94 MG/DL (0.55-1.02); GFR AFRICAN AMERICAN 67 ML/MIN (>=60); GFR NON AFRICAN AMERICAN 58 ML/MIN (>=60); POTASSIUM, SERUM 4.3 MMOL/L (3.5-5.3); SODIUM, SERUM 145 MMOL/L (135-148)
[2016-06-18 05:11] LABS: BUN (BLOOD UREA NITROGEN) 21 MG/DL (6-23); GLUCOSE, SERUM 101 MG/DL (60-99)
[2016-06-19 05:13] LABS: BASOPHILS 0.1 %; BASOPHILS ABSOLUTE 0.01 10/3/uL (0.0-0.16); EOSINOPHILS 1.5 %; HEMATOCRIT 23.8 % (36.0-48.0); HEMOGLOBIN 8.3 g/dL (12.0-16.0); IMMATURE GRANULOCYTES 0.1 %; IMMATURE GRANULOCYTES ABSOLUTE 0.01 10/3/uL (0.0-0.11); LYMPHOCYTES 14.1 %; LYMPHOCYTES ABSOLUTE 0.97 10/3/uL (0.67-4.30); MEAN CORPUS HGB CONC 34.9 g/dL (32.0-36.0); MEAN CORPUSCULAR HEMOGLOB 32.4 pg (26.0-34.0); MEAN PLATELET VOLUME 9.7 fL (9.2-13.0); MONOCYTES 7.1 %; MONOCYTES ABSOLUTE 0.49 10/3/uL (0.21-1.20); NEUTROPHILS 77.1 %; NEUTROPHILS ABSOLUTE 5.28 10/3/uL (2.02-8.40); PLATELET COUNT 148 10/3/uL (150-400); RBC DISTRIBUTION WIDTH 13.5 % (12.0-16.0); RED CELL COUNT 2.56 10/6/uL (4.0-5.6); WHITE BLOOD CELLS 6.9 10/3/uL (4.5-10.5)
[2016-06-19 05:22] LABS: MANUAL DIFF NO %
[2016-06-19 05:35] LABS: CHLORIDE, SERUM 112 MMOL/L (96-112); CO2 (CARBON DIOXIDE) 21 MMOL/L (24-34); CREATININE 0.97 MG/DL (0.55-1.02); GFR AFRICAN AMERICAN 64 ML/MIN (>=60); GFR NON AFRICAN AMERICAN 56 ML/MIN (>=60); POTASSIUM, SERUM 4.3 MMOL/L (3.5-5.3); SODIUM, SERUM 143 MMOL/L (135-148)
[2016-06-19 05:37] LABS: BUN (BLOOD UREA NITROGEN) 17 MG/DL (6-23); GLUCOSE, SERUM 182 MG/DL (60-99)
[2016-06-20 05:19] LABS: BASOPHILS 0.2 %; BASOPHILS ABSOLUTE 0.01 10/3/uL (0.0-0.16); EOSINOPHILS 3.3 %; EOSINOPHILS ABSOLUTE 0.17 10/3/uL (0.0-0.53); HEMATOCRIT 22.7 % (36.0-48.0); IMMATURE GRANULOCYTES 0.6 %; IMMATURE GRANULOCYTES ABSOLUTE 0.03 10/3/uL (0.0-0.11); LYMPHOCYTES 21.5 %; LYMPHOCYTES ABSOLUTE 1.12 10/3/uL (0.67-4.30); MEAN CORPUS HGB CONC 35.2 g/dL (32.0-36.0); MEAN CORPUSCULAR HEMOGLOB 32.8 pg (26.0-34.0); MEAN PLATELET VOLUME 9.4 fL (9.2-13.0); MONOCYTES 9.6 %; NEUTROPHILS 64.8 %; NEUTROPHILS ABSOLUTE 3.39 10/3/uL (2.02-8.40); PLATELET COUNT 153 10/3/uL (150-400); RBC DISTRIBUTION WIDTH 13.2 % (12.0-16.0); RED CELL COUNT 2.44 10/6/uL (4.0-5.6); WHITE BLOOD CELLS 5.2 10/3/uL (4.5-10.5)
[2016-06-20 05:26] LABS: MANUAL DIFF NO %
[2016-06-20 05:35] LABS: BUN (BLOOD UREA NITROGEN) 12 MG/DL (6-23); CALCIUM, SERUM 8.1 MG/DL (8.5-10.4); CHLORIDE, SERUM 114 MMOL/L (96-112); CO2 (CARBON DIOXIDE) 23 MMOL/L (24-34); CREATININE 0.91 MG/DL (0.55-1.02); GFR AFRICAN AMERICAN 70 ML/MIN (>=60); GFR NON AFRICAN AMERICAN 60 ML/MIN (>=60); GLUCOSE, SERUM 104 MG/DL (60-99); POTASSIUM, SERUM 4.3 MMOL/L (3.5-5.3); SODIUM, SERUM 145 MMOL/L (135-148)
[2016-06-20] MEDS ORDERED: SPIRO25 PO (12:14)
[2016-06-20] MEDS ORDERED: ULTRAM50 PO (12:15)
== END 2016-06-20 15:51 | disposition home or self-care (01) | DRG 242 ==
LOC: ER 18:51 → CCU 19:23 → 5NO 06-18 09:36 → SDC/OF 06-18 15:38 → 5NO 06-18 15:40
PROVIDERS: Emergency Medicine; Internal Medicine; Internal Medicine Critical Care Medicine; Nurse Practitioner Family
PROC: 0BH17EZ Insertion of Endotracheal Airway into Trachea, Via Natural or Artificial Opening (ICD-10-PCS; principal; 2016-06-15)
PROC: 0JH606Z Insertion of Pacemaker, Dual Chamber into Chest Subcutaneous Tissue and Fascia, Open Approach (ICD-10-PCS; 2016-06-15)
PROC: 02H63JZ Insertion of Pacemaker Lead into Right Atrium, Percutaneous Approach (ICD-10-PCS; 2016-06-15)
PROC: 02HK3JZ Insertion of Pacemaker Lead into Right Ventricle, Percutaneous Approach (ICD-10-PCS; 2016-06-15)
PROC: 5A1945Z Respiratory Ventilation, 24-96 Consecutive Hours (ICD-10-PCS; 2016-06-15)
PROC: 02HV33Z Insertion of Infusion Device into Superior Vena Cava, Percutaneous Approach (ICD-10-PCS; 2016-06-15)
DX: I44.2 Atrioventricular block, complete (principal); J95.821 Acute postprocedural respiratory failure; N17.9 Acute kidney failure, unspecified; I50.21 Acute systolic (congestive) heart failure; I13.0 Hypertensive heart and chronic kidney disease with heart failure and stage 1 through stage 4 chronic kidney disease, or unspecified chronic kidney disease; E11.65 Type 2 diabetes mellitus with hyperglycemia; Z79.84 Long term (current) use of oral hypoglycemic drugs; I25.2 Old myocardial infarction; Z95.1 Presence of aortocoronary bypass graft; M35.3 Polymyalgia rheumatica; Z79.82 Long term (current) use of aspirin; N18.9 Chronic kidney disease, unspecified; Z90.49 Acquired absence of other specified parts of digestive tract; E66.9 Obesity, unspecified; Z68.29 Body mass index [BMI] 29.0-29.9, adult; I44.7 Left bundle-branch block, unspecified; D63.8 Anemia in other chronic diseases classified elsewhere
CPT/HCPCS: 31720; 33208; 36569; 36600; 71010; 74000; 80048; 80053; 80061; 80069; 81001; 82272; 82330; 82533; 82550; 82553; 82803; 82805; 82947; 82962; 83036; 83605; 83735; 83880; 84100; 84132; 84145; 84295; 84439; 84443; 84484; 85014; 85025; 85610; 87040; 87070; 87205; 87641; 87804; 93005; 93308; 93321; 93325; 94002; 94003; 94660; 94770; 96365; 97162-GP; 99291; A9270-GY; C1751; C1785; C1892; C1898; C8929; C9113; G8978-CK-GP; G8979-CJ-GP; J0330; J0690; J1265; J2370; J2405; J3010; Q9957; Q9967